=== PATIENT | female | born 1940 | race Hispanic/Latino ===

== ENCOUNTER → 2022-03-08 | Day surgery (SDC) | payer MEDICARE, OTHER ==
[~2022-03-08] MED LIST: ELIQUIS5 MG PO; FUROSEMIDE40 MG PO; HYOSCYAMINE SULFATE 0.5 MG/ML INJ ONE; LABETALOL HCL 5 MG/ML 20ML VIAL ONE; METFORMIN HCL500 MG PO; METOPROLOL SUCC25 MG PO; POVIDONE IODINE 0.05% 0.05 % ML PO ONE; PROPOFOL IV EMULSION 10 MG/ML 20 ML VIAL ONE
[2022-03-08 17:40] VITALS: BP 153/82
== END | disposition home or self-care (01) ==
LOC: OR 12:36
PROVIDERS: ATTEND Internal Medicine Gastroenterology
DX: K29.40 Chronic atrophic gastritis without bleeding (principal); D12.2 Benign neoplasm of ascending colon; K31.A0 Gastric intestinal metaplasia, unspecified; K52.9 Noninfective gastroenteritis and colitis, unspecified; K31.89 Other diseases of stomach and duodenum; K59.00 Constipation, unspecified; K20.90 Esophagitis, unspecified without bleeding; K44.9 Diaphragmatic hernia without obstruction or gangrene; K57.30 Diverticulosis of large intestine without perforation or abscess without bleeding; K64.8 Other hemorrhoids; I10 Essential (primary) hypertension; E11.9 Type 2 diabetes mellitus without complications; Z79.84 Long term (current) use of oral hypoglycemic drugs; Z79.02 Long term (current) use of antithrombotics/antiplatelets; Z79.899 Other long term (current) drug therapy; Z86.16 Personal history of COVID-19
CPT/HCPCS: 36415; 43239; 45380; 45385; 82948; C9113; J1980; J2704; J3490; 45378